=== PATIENT | female | born 1945 | race Caucasian/White ===

== ENCOUNTER → 2016-12-17 | Outpatient (CLI) | payer MEDICARE ==
[~2016-12-17] MED LIST: /WARF25TA; CICLOPIROX; DESONIDE; FURO40TA2; KLOR10TA; LASI40TA; LISI20TA5; MILKSUS; MIRALEX; OASIS; PAIN325T; PERC5TAB8; PRIN20TA3; SENO8.6T5; VITAMIN D50000 UNT; [UNRECOGNIZED DRUG - OTHER]
--- NOTE | 2016-12-17 12:15 | REPMRS ---
Patient History The patient states she had a clinical breast exam in 10/2016. Patient is postmenopausal. No known family history of cancer. Took hormonal contraceptives for 10 years. Digital Woman Screen Mammo: December 17, 2016 - Exam #: [id number] Bilateral CC and MLO view(s) were taken. Technologist: Amy Delaney, Technologist Prior study comparison: January 27, 2013, bilateral bilat screen digital mammo, performed at [facility] ([facility]). October 04, 2011, bilateral bilat screen digital mammo, performed at [facility] ([facility]). FINDINGS: There are scattered fibroglandular densities. There has been no change in the appearance of the mammogram from the prior studies. There is a mild amount of residual fibroglandular tissue which is fairly symmetric. There is no interval development of dominant mass, architectural distortion, or clustered microcalcification suggestive of malignancy. There is a benign appearing intramammary node in the upper outer quadrant of the both breasts. No significant changes when compared with prior studies. ASSESSMENT: BI-RADS/ACR category 2 mammogram. Benign finding(s). Recommendation Routine screening mammogram in 1 year (for women over age 40). This mammogram was interpreted with the aid of an FDA-approved computer-aided dectection system. A. Negative x-ray reports should not delay biopsy if a dominant or clinically suspicious mass is present. B. Four to eight percent of cancers are not identified by mammography. C. Adenosis and dense breast may obscure an underlying neoplasm. Electronically Signed By: Lanre Alvarez MD 12/17/16 [id number]
== END ==
LOC: M WHC 11:01
PROVIDERS: ATTEND Obstetrics & Gynecology
DX: Z12.31 Encounter for screening mammogram for malignant neoplasm of breast (principal)

== ENCOUNTER 2017-09-17 09:31 | Day surgery (SDC) | payer MEDICARE ==
[~2017-09-17] VITALS: Ht 160 cm; Wt 132.8 kg
[~2017-09-17 09:31] MED LIST changes: +ASPI1TAB PO; +CALTCHW4 PO; +CENTTAB PO; +FISH5CAP PO; +KLOR10TA PO; +LASI20TA PO; +METF500T13 PO; -PRIN20TA3; +PRIN20TA3 PO; +SIMV20TA2 PO; +TYLE1TAB5 PO
[2017-09-17] MEDS ORDERED: LR 1,000 ML IV SCH (10:00)
[2017-09-17] MEDS ORDERED: PROPOFOL 200 MG/20 ML VIAL As Ordered ONE (10:02)
[2017-09-17] MEDS ORDERED: LIDOCAINE 2% INJ 100 MG/5 ML SDV (FOR ANES.) As Ordered ONE (10:02)
[2017-09-17] MEDS ORDERED: AUGM875T28 PO (10:16)
--- NOTE | 2017-09-17 11:00 | ROOR ---
Patient Name: Mamie Arora Procedure Date: 09/17/2017 10:22 AM Date of : 1945 Age: 72 Room: [facility] Gender: Female Note Status: Finalized Procedure: Colonoscopy Indications: Screening for colorectal malignant neoplasm, Last colonoscopy: November 2007 Providers: Valentín Torres MD Referring MD: Kathleen Dubon DO Requesting Provider: Medicines: Monitored Anesthesia Care Complications: No immediate complications. Procedure: Pre-Anesthesia Assessment: - Prior to the procedure, a History and Physical was performed, and patient medications and allergies were reviewed. The patient is competent. The risks and benefits of the procedure and the sedation options and risks were discussed with the patient. All questions were answered and informed consent was obtained. Patient identification and proposed procedure were verified by the physician, the nurse and the anesthesiologist in the procedure room. Mental Status Examination: alert and oriented. Airway Examination: normal oropharyngeal airway and neck mobility. CV Examination: regular rate and rhythm. Prophylactic Antibiotics: The patient does not require prophylactic antibiotics. Prior Anticoagulants: The patient has taken no previous anticoagulant or antiplatelet agents. ASA Grade Assessment: III - A patient with severe systemic disease. After reviewing the risks and benefits, the patient was deemed in satisfactory condition to undergo the procedure. The anesthesia plan was to use monitored anesthesia care (MAC). Immediately prior to administration of medications, the patient was re-assessed for adequacy to receive sedatives. The heart rate, respiratory rate, oxygen saturations, blood pressure, adequacy of pulmonary ventilation, and response to care were monitored throughout the procedure. The physical status of the patient was re-assessed after the procedure. The Colonoscope was introduced through the anus and advanced to the cecum, identified by appendiceal orifice and ileocecal valve. The colonoscopy was performed without difficulty. The patient tolerated the procedure well. The quality of the bowel preparation was excellent. Findings: The perianal and digital rectal examinations were normal. Multiple medium-mouthed diverticula were found in the sigmoid colon and descending colon. The exam was otherwise without abnormality. Impression: - Diverticulosis in the sigmoid colon and in the descending colon. - The examination was otherwise normal. - No specimens collected. Recommendation: - Discharge patient to home. - Resume previous diet. - Continue present medications. - Repeat colonoscopy in 5-10 years for screening purposes. Valentín Torres MD 09/17/2017 11:00:04 AM Number of Addenda: 0 Note Initiated On: 09/17/2017 10:22 AM Estimated Blood Loss: Estimated blood loss: none.
[2017-09-17 11:17] VITALS: BP 181/85
== END 2017-09-17 11:20 | disposition home or self-care (01) ==
LOC: M OPP 09:31
PROVIDERS: ATTEND Surgery
DX: Z12.11 Encounter for screening for malignant neoplasm of colon (principal); Z86.010 Personal history of colon polyps; K57.30 Diverticulosis of large intestine without perforation or abscess without bleeding; I10 Essential (primary) hypertension; E78.5 Hyperlipidemia, unspecified; E11.9 Type 2 diabetes mellitus without complications; M19.90 Unspecified osteoarthritis, unspecified site; E66.9 Obesity, unspecified; Z87.440 Personal history of urinary (tract) infections; Z96.653 Presence of artificial knee joint, bilateral; Z87.891 Personal history of nicotine dependence; Z88.8 Allergy status to other drugs, medicaments and biological substances; Z88.5 Allergy status to narcotic agent; Z79.82 Long term (current) use of aspirin; Z79.84 Long term (current) use of oral hypoglycemic drugs; Z79.899 Other long term (current) drug therapy

== ENCOUNTER → 2017-10-11 | Outpatient (REF) | payer MEDICARE ==
[~2017-10-11] MED LIST changes: +AUGM875T28 PO; +SULF1TAB72 PO; +VICT18IN SC; +VITA-122 PO
[2017-10-11 17:41] LABS: CALCIUM OXALATE CRYSTALS LARGE
== END ==
LOC: M LAB REF 16:36
PROVIDERS: ATTEND Obstetrics & Gynecology
DX: R39.89 Other symptoms and signs involving the genitourinary system (principal)

== ENCOUNTER 2017-10-24 13:34 | Day surgery (SDC) | payer MEDICARE ==
[2017-10-24] MEDS: LR 1,000 ML IV ×3 (14:24→19:00)
[2017-10-24] MEDS: BUPIVACAINE HCL 0.5% 30 ML VIAL As Ordered (16:10)
[2017-10-24] MEDS ORDERED: LIDOCAINE 2% INJ 100 MG/5 ML SDV (FOR ANES.) As Ordered (16:19)
[2017-10-24] MEDS ORDERED: dexameTHASONE 4 MG/ML 1ML VIAL (J1100) As Ordered ×2 (16:19→17:20)
[2017-10-24] MEDS ORDERED: ONDANSETRON 4MG/2ML VIAL (J2405) As Ordered (16:19)
[2017-10-24] MEDS ORDERED: PROPOFOL 200 MG/20 ML VIAL As Ordered (16:19)
[2017-10-24] MEDS ORDERED: MIDAZOLAM INJ 2 MG/2 ML VIAL (J2250) As Ordered (16:20)
[2017-10-24] MEDS ORDERED: fentaNYL 100 MCG/2 ML INJECTION (J3010) As Ordered (16:21)
[2017-10-24] MEDS ORDERED: HYDROmorphone HCL 2 MG/ML 1ML VIAL (J1170) As Ordered (17:31)
[2017-10-24] MEDS ORDERED: fentaNYL 100 MCG/2 ML INJECTION (J3010) IV (19:00)
[2017-10-24] MEDS: ONDANSETRON 4MG/2ML VIAL (J2405) IV (19:20)
[2017-10-24] MEDS: ACETAMINOPHEN TAB 650MG DOSE (2X325MG) PO (20:10)
[2017-10-24] MEDS ORDERED: KETOROLAC 30 MG/ML VIAL (J1885) As Ordered (20:11)
[2017-10-24] MEDS: oxyCODONE 5MG TAB PO (21:15)
[2017-10-24] MEDS ORDERED: KETOROLAC 30 MG/ML VIAL (J1885) IV (21:15)
[2017-10-25] MEDS: oxyCODONE 5MG TAB PO (01:27)
[2017-10-25] MEDS: LR 1,000 ML IV (03:00)
== END 2017-10-25 12:50 | disposition home or self-care (01) ==
LOC: M SDC 13:34 → M PED 21:30
DX: C67.9 Malignant neoplasm of bladder, unspecified (principal); R94.31 Abnormal electrocardiogram [ECG] [EKG]; I10 Essential (primary) hypertension; E10.9 Type 1 diabetes mellitus without complications; E78.00 Pure hypercholesterolemia, unspecified; R32 Unspecified urinary incontinence; E66.9 Obesity, unspecified; R06.83 Snoring; M12.9 Arthropathy, unspecified; R06.02 Shortness of breath; Z88.5 Allergy status to narcotic agent; Z88.6 Allergy status to analgesic agent; Z79.899 Other long term (current) drug therapy; Z79.82 Long term (current) use of aspirin; Z87.891 Personal history of nicotine dependence
CPT/HCPCS: 52204

== ENCOUNTER → 2017-11-12 | Outpatient (CLI) | payer MEDICARE ==
[2017-11-12 18:08] LABS: ANION GAP 6 MEQ/L (8-16); BLOOD UREA NITROGEN 18 MG/DL (7-18); CALCIUM LEVEL 9.1 MG/DL (8.8-10.2); CARBON DIOXIDE LEVEL 31 MEQ/L (21-32); CHLORIDE LEVEL 105 MEQ/L (98-107); CREATININE FOR GFR 0.83 MG/DL (0.55-1.02); GLOMERULAR FILTRATION RATE > 60.0 (>39); GLUCOSE, FASTING 89 MG/DL (83-110); POTASSIUM SERUM 4.5 MEQ/L (3.5-5.1); SODIUM LEVEL 142 MEQ/L (136-145)
== END ==
LOC: M SMT 15:52
DX: C67.9 Malignant neoplasm of bladder, unspecified (principal)
CPT/HCPCS: 80048

== ENCOUNTER → 2017-11-15 | Outpatient (CLI) | payer MEDICARE ==
[~2017-11-15] MED LIST changes: -/WARF25TA; -ASPI1TAB PO; -AUGM875T28 PO; -CALTCHW4 PO; -CENTTAB PO; -CICLOPIROX; -DESONIDE; -FISH5CAP PO; -FURO40TA2; +ISOVUE-370 76% 100ML VIAL (Q9967) As Ordered; -KLOR10TA; -KLOR10TA PO; -LASI20TA PO; -LASI40TA; -LISI20TA5; -METF500T13 PO; -MILKSUS; -MIRALEX; -OASIS; -PAIN325T; -PERC5TAB8; -PRIN20TA3 PO; -SENO8.6T5; -SIMV20TA2 PO; -SULF1TAB72 PO; -TYLE1TAB5 PO; -VICT18IN SC; -VITA-122 PO; -VITAMIN D50000 UNT; -[UNRECOGNIZED DRUG - OTHER]
[2017-11-15 16:26] LABS: HEMATOCRIT 34.5 % (36.0-47.0); HEMOGLOBIN 10.8 g/dl (12.0-16.0); MEAN CORPUSCULAR HEMOGLOBIN 27.6 pg (27.0-33.0); MEAN CORPUSCULAR HGB CONC 31.3 g/dl (32.0-36.5); PLATELET COUNT, AUTOMATED 232 10^3/uL (150-450); RED BLOOD COUNT 3.92 10^6/uL (4.00-5.40); RED CELL DISTRIBUTION WIDTH 13.7 % (11.5-14.5)
[2017-11-15 16:33] LABS: APPEARANCE, URINE CLOUDY (CLEAR); BACTERIA, URINE AUTO 2+ (NEGATIVE); BILIRUBIN, URINE AUTO NEGATIVE (NEGATIVE); BLOOD, URINE BLOOD NEGATIVE (NEGATIVE); COLOR, URINE YELLOW (YELLOW); GLUCOSE, URINE (UA) AUTO NEGATIVE (NEGATIVE); KETONE, URINE AUTO NEGATIVE (NEGATIVE); LEUKOCYTE ESTERASE, URINE AUTO 3+ (NEGATIVE); NITRITE, URINE AUTO POSITIVE (NEGATIVE); PROTEIN, URINE AUTO NEGATIVE (NEGATIVE); RBC, URINE AUTO 3 /HPF (0-3); SPECIFIC GRAVITY URINE AUTO 1.014 (1.002-1.035); SQUAMOUS EPITHELIAL CELL UR AU 1 /HPF (0-6); UROBILINOGEN, URINE AUTO 0.2 mg/dL (0.0-2.0); WBC, URINE AUTO TNTC /HPF (0-3)
[2017-11-15 16:38] LABS: INR 0.95; PROTHROMBIN TIME 12.8 SECONDS (12.4-14.5)
[2017-11-15 16:39] LABS: PARTIAL THROMBOPLASTIN TIME 29.3 SECONDS (26.8-37.9)
== END ==
LOC: M RAD 15:51
DX: Z01.818 Encounter for other preprocedural examination (principal); C67.9 Malignant neoplasm of bladder, unspecified; Z79.899 Other long term (current) drug therapy
CPT/HCPCS: Q9967

== ENCOUNTER 2017-11-22 10:02 | Day surgery (SDC) | payer MEDICARE ==
[~2017-11-22 10:02] MED LIST changes: -ISOVUE-370 76% 100ML VIAL (Q9967) As Ordered; +LIDOCAINE 2% INJ 100 MG/5 ML SDV (FOR ANES.) As Ordered; +MIDAZOLAM INJ 2 MG/2 ML VIAL (J2250) As Ordered; +ONDANSETRON 4MG/2ML VIAL (J2405) As Ordered; +PROPOFOL 200 MG/20 ML VIAL As Ordered; +dexameTHASONE 4 MG/ML 1ML VIAL (J1100) As Ordered; +fentaNYL 100 MCG/2 ML INJECTION (J3010) As Ordered
[2017-11-22 10:52] LABS: BEDSIDE GLUCOSE 115 MG/DL (83-110)
[2017-11-22] MEDS: LR 1,000 ML IV (10:54)
[2017-11-22] MEDS: CEFAZOLIN SOD 3 GM in APPROPRIATE DILUENT 1 EA IV (12:39)
[2017-11-22] MEDS ORDERED: PHENYLephrine HCL 500 MCG/5 ML (100MCG/ML) SYRINGE (J2370) As Ordered (12:55)
[2017-11-22] MEDS ORDERED: ROCURONIUM BROMIDE 50 MG/5 ML VIAL As Ordered (12:55)
[2017-11-22] MEDS ORDERED: SUGAMMADEX SODIUM 500 MG/5 ML VIAL (BRIDION) As Ordered (13:01)
[2017-11-22] MEDS ORDERED: LR 1,000 ML IV (13:45)
[2017-11-22] MEDS ORDERED: fentaNYL 100 MCG/2 ML INJECTION (J3010) IV (13:45)
[2017-11-22] MEDS ORDERED: ACETAMINOPHEN TAB 650MG DOSE (2X325MG) PO (13:45)
[2017-11-22] MEDS ORDERED: NORCO, ANEXSIA 5/325MG TABLET (HYDROcodone/ACETAMINOPHEN) PO (13:45)
[2017-11-22 13:52] LABS: BEDSIDE GLUCOSE 106 MG/DL (83-110)
== END 2017-11-22 15:47 | disposition home or self-care (01) ==
LOC: M SDC 10:02
DX: C67.9 Malignant neoplasm of bladder, unspecified (principal); I10 Essential (primary) hypertension; K63.5 Polyp of colon; E78.5 Hyperlipidemia, unspecified; E11.9 Type 2 diabetes mellitus without complications; R06.02 Shortness of breath; M12.9 Arthropathy, unspecified; Z88.5 Allergy status to narcotic agent; Z88.6 Allergy status to analgesic agent; Z79.899 Other long term (current) drug therapy; Z79.82 Long term (current) use of aspirin; Z87.891 Personal history of nicotine dependence; Z87.440 Personal history of urinary (tract) infections; Z78.0 Asymptomatic menopausal state; Z96.653 Presence of artificial knee joint, bilateral; Z96.1 Presence of intraocular lens
CPT/HCPCS: 52234

== ENCOUNTER → 2018-01-01 | Outpatient (CLI) | payer MEDICARE ==
[2018-01-01 18:01] LABS: HEMATOCRIT 40.2 % (36.0-47.0); HEMOGLOBIN 12.6 g/dl (12.0-16.0); MEAN CORPUSCULAR HGB CONC 31.3 g/dl (32.0-36.5); MEAN CORPUSCULAR VOLUME 86.1 fl (80.0-96.0); PLATELET COUNT, AUTOMATED 227 10^3/uL (150-450); RED BLOOD COUNT 4.67 10^6/uL (4.00-5.40); RED CELL DISTRIBUTION WIDTH 13.4 % (11.5-14.5); WHITE BLOOD COUNT 8.5 10^3/uL (4.0-10.0)
[2018-01-01 18:02] LABS: APPEARANCE, URINE CLEAR (CLEAR); BACTERIA, URINE AUTO 1+ (NEGATIVE); BILIRUBIN, URINE AUTO NEGATIVE (NEGATIVE); BLOOD, URINE BLOOD NEGATIVE (NEGATIVE); COLOR, URINE YELLOW (YELLOW); GLUCOSE, URINE (UA) AUTO NEGATIVE (NEGATIVE); KETONE, URINE AUTO NEGATIVE (NEGATIVE); LEUKOCYTE ESTERASE, URINE AUTO 2+ (NEGATIVE); NITRITE, URINE AUTO NEGATIVE (NEGATIVE); PROTEIN, URINE AUTO NEGATIVE (NEGATIVE); RBC, URINE AUTO 4 /HPF (0-3); SPECIFIC GRAVITY URINE AUTO 1.012 (1.002-1.035); SQUAMOUS EPITHELIAL CELL UR AU 0 /HPF (0-6); UROBILINOGEN, URINE AUTO 0.2 mg/dL (0.0-2.0); WBC, URINE AUTO 96 /HPF (0-3)
[2018-01-01 19:19] LABS: ALBUMIN 4.1 GM/DL (3.2-5.2); ALBUMIN/GLOBULIN RATIO 1.41 (1.00-1.93); ALKALINE PHOSPHATASE 64 U/L (45-117); ALT/SGPT 42 U/L (12-78); ANION GAP 7 MEQ/L (8-16); AST/SGOT 23 U/L (7-37); BILIRUBIN,TOTAL 0.4 MG/DL (0.2-1.0); BLOOD UREA NITROGEN 16 MG/DL (7-18); CALCIUM LEVEL 9.1 MG/DL (8.8-10.2); CARBON DIOXIDE LEVEL 30 MEQ/L (21-32); CHLORIDE LEVEL 106 MEQ/L (98-107); CREATININE FOR GFR 0.85 MG/DL (0.55-1.30); GLOMERULAR FILTRATION RATE > 60.0 (>39); GLUCOSE, FASTING 91 MG/DL (70-100); POTASSIUM SERUM 4.6 MEQ/L (3.5-5.1); SODIUM LEVEL 143 MEQ/L (136-145)
== END ==
LOC: M LAB 16:47
DX: C67.9 Malignant neoplasm of bladder, unspecified (principal)
CPT/HCPCS: 80053

== ENCOUNTER → 2018-05-27 | Outpatient (REF) | payer MEDICARE | LOC: M SMT 16:57 | DX: C67.9 Malignant neoplasm of bladder, unspecified (principal) | CPT/HCPCS: 88108 ==

== ENCOUNTER → 2018-07-03 | Outpatient (REF) | payer MEDICARE ==
[2018-07-03 20:53] LABS: APPEARANCE, URINE CLEAR (CLEAR); BACTERIA, URINE AUTO NEGATIVE (NEGATIVE); BILIRUBIN, URINE AUTO NEGATIVE (NEGATIVE); BLOOD, URINE BLOOD NEGATIVE (NEGATIVE); COLOR, URINE YELLOW (YELLOW); GLUCOSE, URINE (UA) AUTO NEGATIVE (NEGATIVE); KETONE, URINE AUTO NEGATIVE (NEGATIVE); LEUKOCYTE ESTERASE, URINE AUTO NEGATIVE (NEGATIVE); NITRITE, URINE AUTO NEGATIVE (NEGATIVE); PROTEIN, URINE AUTO NEGATIVE (NEGATIVE); RBC, URINE AUTO 0 /HPF (0-3); SPECIFIC GRAVITY URINE AUTO 1.012 (1.002-1.035); SQUAMOUS EPITHELIAL CELL UR AU 0 /HPF (0-6); WBC, URINE AUTO 0 /HPF (0-3)
== END ==
LOC: M SMT 17:16
DX: C67.9 Malignant neoplasm of bladder, unspecified (principal); N39.0 Urinary tract infection, site not specified
CPT/HCPCS: 81001

== ENCOUNTER → 2018-09-20 | Outpatient (CLI) | payer MEDICARE ==
[2018-09-20 12:10] LABS: BASO % 0.3 % (0.0-1.0); EOS # 0.2 10^3/uL (0.0-0.50); EOS % 2.3 % (0.0-3.0); HEMATOCRIT 41.3 % (36.0-47.0); HEMOGLOBIN 13.4 g/dl (12.0-15.5); IMMATURE GRANULOCYTE % 0.1 % (0-3.0); LYMPH # 1.1 10^3/uL (1.5-4.5); LYMPH % 16.7 % (24.0-44.0); MEAN CORPUSCULAR HEMOGLOBIN 28.5 pg (27.0-33.0); MEAN CORPUSCULAR HGB CONC 32.4 g/dl (32.0-36.5); MEAN CORPUSCULAR VOLUME 87.7 fl (80.0-96.0); MONO # 0.7 10^3/uL (0.0-0.8); MONO % 10.1 % (0.0-5.0); NEUTROPHILS # 4.8 10^3/uL (1.8-7.7); NEUTROPHILS % 70.5 % (36.0-66.0); PLATELET COUNT, AUTOMATED 201 10^3/uL (150-450); RED BLOOD COUNT 4.71 10^6/uL (4.00-5.40); WHITE BLOOD COUNT 6.8 10^3/uL (4.0-10.0)
[2018-09-20 12:30] LABS: ESTIMATED AVERAGE GLUCOSE 128 MG/DL (60-110); HEMOGLOBIN A1c 6.1 %
[2018-09-20 12:39] LABS: ALBUMIN 3.9 GM/DL (3.2-5.2); ALBUMIN/GLOBULIN RATIO 1.34 (1.00-1.93); ALKALINE PHOSPHATASE 62 U/L (45-117); ALT/SGPT 38 U/L (12-78); ANION GAP 4 MEQ/L (8-16); AST/SGOT 22 U/L (7-37); BILIRUBIN,TOTAL 0.5 MG/DL (0.2-1.0); BLOOD UREA NITROGEN 16 MG/DL (7-18); CALCIUM LEVEL 8.8 MG/DL (8.8-10.2); CARBON DIOXIDE LEVEL 31 MEQ/L (21-32); CHLORIDE LEVEL 104 MEQ/L (98-107); CHOLESTEROL LEVEL 169 MG/DL (<200); CHOLESTEROL RISK RATIO 2.913 (<5); CREATININE FOR GFR 0.76 MG/DL (0.55-1.30); GLOMERULAR FILTRATION RATE > 60.0 (>39); GLUCOSE, FASTING 95 MG/DL (70-100); HDL CHOLESTEROL 58 MG/DL (>40); LDL CHOLESTEROL 88 MG/DL (<100); MALB URINE SIEMENS 12.7 MG/L; MAU/CREAT RATIO 6.1 MCG/MG (0.0-30.0); NON-HDL-C 111 MG/DL; POTASSIUM SERUM 4.5 MEQ/L (3.5-5.1); SODIUM LEVEL 139 MEQ/L (136-145); TOTAL PROTEIN 6.8 GM/DL (6.4-8.2); TRIGLYCERIDES LEVEL 117 MG/DL (<150)
[2018-09-23 14:12] LABS: Lyme Disease IgG/IgM Antibodie <0.91 ISR (0.00-0.90); Lyme Disease IgM Ab Quantitati <0.80 index (0.00-0.79)
== END ==
LOC: M LAB 10:39
DX: Z00.00 Encounter for general adult medical examination without abnormal findings (principal); C67.9 Malignant neoplasm of bladder, unspecified; L98.9 Disorder of the skin and subcutaneous tissue, unspecified; E11.9 Type 2 diabetes mellitus without complications; E66.01 Morbid (severe) obesity due to excess calories; Z23 Encounter for immunization; I10 Essential (primary) hypertension; I11.9 Hypertensive heart disease without heart failure
CPT/HCPCS: 80053

== ENCOUNTER → 2018-09-30 | Outpatient (REF) | payer MEDICARE | LOC: M SMT 17:59 | DX: C67.9 Malignant neoplasm of bladder, unspecified (principal) | CPT/HCPCS: 88108 ==

== ENCOUNTER → 2018-11-19 | Outpatient (CLI) | payer MEDICARE ==
[~2018-11-19] MED LIST changes: +/WARF25TA; +ASPI1TAB PO; +AUGM875T28 PO; +CALTCHW4 PO; +CENTTAB PO; +CICLOPIROX; +DESONIDE; +FISH5CAP PO; +FURO40TA2; +KLOR10TA; +KLOR10TA PO; +LASI20TA3 PO; +LASI40TA; -LIDOCAINE 2% INJ 100 MG/5 ML SDV (FOR ANES.) As Ordered; +LISI20TA5; +METF500T13 PO; -MIDAZOLAM INJ 2 MG/2 ML VIAL (J2250) As Ordered; +MILKSUS; +MIRALEX; +OASIS; -ONDANSETRON 4MG/2ML VIAL (J2405) As Ordered; +PAIN325T; +PERC5TAB8; +PRIN20TA3 PO; -PROPOFOL 200 MG/20 ML VIAL As Ordered; +SENO8.6T5; +SIMV20TA2 PO; +SULF1TAB72 PO; +TYLE1TAB5 PO; +TYLE325T5 PO; +VICT18IN SC; +VITA-122 PO; +VITA10006 PO; +VITAMIN D50000 UNT; +[UNRECOGNIZED DRUG - OTHER]; -dexameTHASONE 4 MG/ML 1ML VIAL (J1100) As Ordered; -fentaNYL 100 MCG/2 ML INJECTION (J3010) As Ordered
--- NOTE | 2018-11-19 14:43 | REPMRS ---
Patient History The patient states she had a clinical breast exam in 07/2018. Patient is postmenopausal and has history of bladder cancer at age 72. No known family history of cancer. Took hormonal contraceptives for 10 years. Digital Woman Screen Mammo: November 19, 2018 - Exam #: [id number] Bilateral CC and MLO view(s) were taken. Technologist: Amy Delaney, Technologist Prior study comparison: December 17, 2016, digital woman screen mammo performed at [facility]. January 27, 2013, bilateral bilat screen digital mammo, performed at [facility] ([facility]). October 04, 2011, bilateral bilat screen digital mammo, performed at [facility] ([facility]). FINDINGS: There are scattered fibroglandular densities. There has been no change in the appearance of the mammogram from the prior studies. There is a mild amount of scattered fibroglandular density which is fairly symmetric. There is no interval development of dominant mass, architectural distortion, or clustered microcalcification suggestive of malignancy. 3-D tomosynthesis shows no additional findings. Assessment: BI-RADS/ACR category 1 mammogram. Negative Mammogram. Recommendation Routine screening mammogram of both breasts in 1 year (for women over age 40). This patient's Lifetime Breast Cancer RIsk is estimated at 3.6 %. This mammogram was interpreted with the aid of an FDA-approved computer-aided dectection system. Electronically Signed By: Kale Vela MD 11/19/18 [id number]
== END ==
LOC: M WHC 13:05
PROVIDERS: ATTEND Family Medicine
DX: Z12.31 Encounter for screening mammogram for malignant neoplasm of breast (principal)

== ENCOUNTER → 2019-01-19 | Outpatient (REF) | payer MEDICARE | LOC: M SMT 17:15 | PROVIDERS: ATTEND Urology | DX: C67.9 Malignant neoplasm of bladder, unspecified (principal) ==

== ENCOUNTER → 2019-04-24 | Outpatient (REF) | payer MEDICARE ==
[~2019-04-24] MED LIST changes: -/WARF25TA; -ASPI1TAB PO; +ASPI81TA26 PO; +COUM1TAB18; -SIMV20TA2 PO; +SIMV20TA22 PO; -SULF1TAB72 PO; +SULF400T14 PO
== END ==
LOC: M SMT 17:02
PROVIDERS: ATTEND Urology
DX: C67.9 Malignant neoplasm of bladder, unspecified (principal)

== ENCOUNTER → 2019-07-27 | Outpatient (REF) | payer MEDICARE ==
[~2019-07-27] MED LIST changes: +SIMV20TA2 PO; -SIMV20TA22 PO; +SULF1TAB72 PO; -SULF400T14 PO
== END ==
LOC: M SMT 17:00
PROVIDERS: ATTEND Urology
DX: C67.9 Malignant neoplasm of bladder, unspecified (principal)

== ENCOUNTER → 2019-11-16 | Outpatient (REF) | payer MEDICARE ==
[~2019-11-16] MED LIST changes: -SIMV20TA2 PO; +SIMV20TA22 PO; -SULF1TAB72 PO; +SULF400T14 PO
== END ==
LOC: M SMT 17:11
PROVIDERS: ATTEND Urology
DX: C67.9 Malignant neoplasm of bladder, unspecified (principal)

== ENCOUNTER → 2020-06-20 | Outpatient (REF) | payer MEDICARE | LOC: M LAB REF 17:53 | PROVIDERS: ATTEND Urology | DX: C67.9 Malignant neoplasm of bladder, unspecified (principal) ==

== ENCOUNTER → 2020-12-02 | Outpatient (REF) | payer MEDICARE | LOC: M SMT 17:09 | PROVIDERS: ATTEND Urology | DX: C67.9 Malignant neoplasm of bladder, unspecified (principal) ==

== ENCOUNTER → 2021-06-05 | Outpatient (REF) | payer MEDICARE | LOC: M SMT 13:38 | PROVIDERS: ATTEND Urology | DX: C67.9 Malignant neoplasm of bladder, unspecified (principal) ==

== ENCOUNTER → 2021-11-15 | Outpatient (REF) | payer MEDICARE | LOC: M LAB REF 17:38 | PROVIDERS: ATTEND Ophthalmology | DX: D23.122 Other benign neoplasm of skin of left lower eyelid, including canthus (principal) ==

== ENCOUNTER → 2022-06-05 | Outpatient (REF) | payer MEDICARE | LOC: M SMT 13:02 | PROVIDERS: ATTEND Urology | DX: C67.9 Malignant neoplasm of bladder, unspecified (principal) ==

== ENCOUNTER → 2023-06-11 | Outpatient (REF) | payer MEDICARE | LOC: M SMT 17:36 | PROVIDERS: ATTEND Urology | DX: Z85.51 Personal history of malignant neoplasm of bladder (principal) ==

== ENCOUNTER → 2024-06-12 | Outpatient (REF) | payer MEDICARE | LOC: M SMT 17:00 | PROVIDERS: ATTEND Urology | DX: C67.9 Malignant neoplasm of bladder, unspecified (principal) ==

== ENCOUNTER → 2025-06-14 | Outpatient (REF) | payer MEDICARE | LOC: M SMT 13:00 | PROVIDERS: ATTEND Urology | DX: C67.9 Malignant neoplasm of bladder, unspecified (principal) ==